=== PATIENT | female | born 1955 | race Caucasian/White ===

== ENCOUNTER 2019-02-15 18:32 | Inpatient (IN) | payer MEDICAID ==
[~2019-02-15] VITALS: Ht 165.1 cm; Wt 130.0 kg
[2019-02-15] MEDS ORDERED: IPRATROPIUM BROM 0.5 MG/2.5ML INH SOL NEB ONE (19:00)
[2019-02-15] MEDS ORDERED: ALBUTEROL SULF 2.5 MG/0.5ML(0.5%) NEB SOLN NEB ONE (19:00)
[2019-02-15 19:13] LABS: Basophils # (auto) 0.1 uL; Eosinophils # (auto) 0.2 uL; Eosinophils % (auto) 2.1 % (0.0-7.0); Hematocrit 45.9 % (41.0-53.0); Hemoglobin 14.8 g/dL (13.5-17.5); Lymphocytes # (auto) 1.6 uL; Lymphocytes % (auto) 19.6 % (10.0-50.0); Mean Corpuscular Hemoglobin 29.4 pg (28.0-32.0); Mean Corpuscular Hgb Conc. 32.2 g/dL (32.0-36.0); Mean Corpuscular Volume 91.3 fL (80.0-100.0); Monocytes # (auto) 0.7 uL; Monocytes % (auto) 8.9 % (0.0-12.0); Neutrophils # (auto) 5.6 uL; Neutrophils % (auto) 68.4 % (37.0-80.0); Nucleated Red Blood Cells % 0.2 %; Platelet Count (auto) 198 10^3/uL (140-450); Red Blood Cells 5.03 10^6/uL (4.5-5.90); Red Cell Distribution Width 15.5 % (11.8-14.3); White Blood Cell 8.1 10^3/uL (4.4-10.8)
[2019-02-15 19:27] LABS: Alanine Aminotransferase 26 U/L (16-61); Albumin 3.4 g/dL (3.4-5.0); Anion Gap 2 (5-15); Aspartate Aminotransferase 16 U/L (15-37); Blood Urea Nitrogen 18 mg/dL (7-18); Calcium 8.9 mg/dL (8.5-10.1); Carbon Dioxide 38 mmol/L (21-32); Chloride 104 mmol/L (98-107); GFR African American 135 mL/min; GFR Non-African American 112 mL/min; Glucose 110 mg/dL (74-106); Magnesium 2.4 mg/dL (1.6-2.6); Potassium 4.3 mmol/L (3.5-5.1); Sodium 144 mmol/L (136-145)
[2019-02-15] MEDS ORDERED: cefTRIAXone 1GM/50ML D5W 50 ML IV ONE (19:30)
[2019-02-15] MEDS ORDERED: methylPREDNISolone SOD SUCC 125 MG/2 ML VL IV ONE (19:30)
[2019-02-15 19:32] LABS: Alkaline Phosphatase 112 U/L (45-117); Bilirubin, Total 0.2 mg/dL (0.2-1.0); Total Protein 7.2 g/dL (6.4-8.2)
[2019-02-15 19:37] LABS: Urine Bacteria FEW /hpf (None Seen); Urine Blood TRACE /uL (Negative); Urine Hyaline Cast FEW /lpf (0 - 2); Urine Mucus FEW (None Seen); Urine Specific Gravity 1.014 (1.001-1.035); Urine WBC 1 /hpf (0 - 3)
[2019-02-15 19:47] LABS: INR < 0.93 (0.9-1.15); Partial Thromboplastin Time 24.8 sec (23.64-32.05)
[2019-02-15] MEDS ORDERED: NITROGLYCERIN 0.4 MG SL TAB SL PRN (21:45)
[2019-02-15] MEDS ORDERED: LORazepam 0.5 MG TAB PO PRN (21:45)
[2019-02-15] MEDS ORDERED: ZOLPIDEM TARTRATE 5 MG TAB PO PRN (21:45)
[2019-02-15] MEDS ORDERED: MORPHINE SULFATE 4 MG/ML SYR/VIAL IV PRN ×2 (21:45)
[2019-02-15] MEDS ORDERED: ONDANSETRON HCL 4 MG/2 ML VIAL IV PRN (21:45)
[2019-02-15] MEDS ORDERED: ALUM & MAG HYDROX-SIMETH LIQ(MAALOX) 30 ML PO PRN (21:45)
[2019-02-15] MEDS ORDERED: MORPHINE SULF INJ 2 MG/ML SYRINGE 1ML IV PRN (21:45)
[2019-02-15] MEDS: methylPREDNISolone SOD SUCC 40 MG/ML VL IV SCH (22:00)
--- NOTE | 2019-02-15 23:30 | NUR ---
received pt from er nurse poc reviewed
[2019-02-15] MEDS: AZITHROMYCIN 500MG/ 250ML 250 ML IV SCH (23:32)
--- NOTE | 2019-02-15 23:50 | NUR ---
Patient has a list of the medications she takes at home but no dosages and states she will have them brought in tomorrow or call her daughter for that information when her daughter is home.
[2019-02-16] VITALS (7 sets, daily range): BP systolic 128–147; BP diastolic 71–89
--- NOTE | 2019-02-16 00:10 | NUR ---
Respiratory note: AT BEDSIDE FOR PLACEMENT PT NOT READY TO BE PLACED ON BIPAP YET PADMINI ARREDONDO AND GIRISH AT BEDSIDE AND MADE AWARE TO HAVE ME PAGED WHEN PT IS READY.
--- NOTE | 2019-02-16 00:26 | NUR ---
Respiratory note: at bedside placed pt on bipap on size medium mask. no breakdown noted prior to placement. bs are diminished t/o, med neb tx given inline without adverse reaction noted. pt aware I can be paged at any time she has a concern with equipment or her breathing. RN Jessica aware of placement.
[2019-02-16] MEDS: ALBUTEROL SULF 2.5 MG/0.5ML(0.5%) NEB SOLN NEB SCH ×4 (00:36→22:37)
[2019-02-16] MEDS: IPRATROPIUM BROM 0.5 MG/2.5ML INH SOL NEB SCH ×4 (00:36→22:37)
--- NOTE | 2019-02-16 00:39 | NUR ---
pt on bipap tolerating well
--- NOTE | 2019-02-16 02:08 | NUR ---
Respiratory note: AT BEDSIDE FOR ROUTINE BIPAP CHECK, NO CHANGES MADE AT THIS TIME. PT COMFORTABLY SLEEPING.
--- NOTE | 2019-02-16 04:29 | NUR ---
Respiratory note: END OF SHIFT BIPAP CHECK, NO CHANGES DONE AT THIS TIME. WILL HAVE DAY SHIFT RT CONTINUE POC.
[2019-02-16 05:53] LABS: Basophils # (auto) 0 uL; Basophils % (auto) 0.4 % (0.0-2.0); Eosinophils # (auto) 0 uL; Eosinophils % (auto) 0.1 % (0.0-7.0); Hematocrit 45.2 % (36.0-46.0); Hemoglobin 14.4 g/dL (12.2-16.2); Lymphocytes # (auto) 0.8 uL; Lymphocytes % (auto) 12.2 % (10.0-50.0); Mean Corpuscular Hemoglobin 29.2 pg (28.0-32.0); Mean Corpuscular Hgb Conc. 31.8 g/dL (32.0-36.0); Mean Corpuscular Volume 91.7 fL (80.0-100.0); Monocytes # (auto) 0.1 uL; Monocytes % (auto) 1.6 % (0.0-12.0); Neutrophils # (auto) 5.8 uL; Neutrophils % (auto) 85.7 % (37.0-80.0); Nucleated Red Blood Cells % 0.1 %; Platelet Count (auto) 188 10^3/uL (140-450); Red Blood Cells 4.93 10^6/uL (4.0-5.20); Red Cell Distribution Width 15.9 % (11.8-14.3); White Blood Cell 6.8 10^3/uL (4.4-10.8)
[2019-02-16 06:13] LABS: INR < 0.93 (0.9-1.15); Partial Thromboplastin Time 25.9 sec (23.64-32.05)
[2019-02-16] MEDS: methylPREDNISolone SOD SUCC 40 MG/ML VL IV SCH ×3 (06:21→22:03)
--- NOTE | 2019-02-16 06:23 | NUR ---
resting with eyes closed call light within reach, no c/o discomfort
[2019-02-16 06:34] LABS: Potassium 4.4 mmol/L (3.5-5.1)
[2019-02-16 06:45] LABS: Albumin 3.2 g/dL (3.4-5.0); BUN/Creatinine Ratio 35.5; Bilirubin, Total 0.2 mg/dL (0.2-1.0); Calcium 8.9 mg/dL (8.5-10.1); Magnesium 2.3 mg/dL (1.6-2.6); Phosphorus 2.9 mg/dL (2.5-4.90)
--- NOTE | 2019-02-16 08:00 | NUR ---
Opening Shift Note Assumed care of patient, awake, alert and oriented X4. No S/S of distress/SOB or pain. Patient is currently on Bi-Pap with SPO2 @ 94%. Tele# 55, sinus rhythm @ 86 bpm. IV to right forearm, 20 gauge, patent and saline locked. Instructed on POC and to call for assist PRN, verbalized understanding. Bed locked, in lowest position, call light within reach, will continue to monitor for changes Q1hr and PRN.
--- NOTE | 2019-02-16 09:02 | NUR ---
Respiratory note: ABG DRAWN AT 0848 ON BIPAP TO REASSESS CO2 LEVELS. CRITICAL VALUE ON CO2. DR. GROSSMAN PAGED AT THIS TIME TO REPORT CRITICAL VALUE. AWAITING CALL BACK. PADMINI REINOSO AWARE OF CRITICAL VALUE AND OF CALL OUT TO DR. GROSSMAN.
--- NOTE | 2019-02-16 09:23 | NUR ---
Respiratory note: RECEIVED CALL BACK FROM DR. GROSSMAN, ABG TO BE REPEATED AT 1100 AFTER FIO2 DECREASE TO 35%.
--- NOTE | 2019-02-16 09:50 | NUR ---
Respiratory note: FIO2 DECREASED TO 32% AT THIS TIME. SPO2 MAINTAINED AT 90%.
[2019-02-16] MEDS ORDERED: DOCUSATE SOD 100 MG CAP PO SCH (10:00)
[2019-02-16] MEDS: ENOXAPARIN SOD 40 MG/0.4 ML SYRINGE SC SCH (11:01)
--- NOTE | 2019-02-16 11:18 | NUR ---
Respiratory note: REPEAT ABG DRAWN AND RESULTS REPORTED TO DR. GROSSMAN WELL TO PADMINI REINOSO. PH HAS NORMALIZED AND CO2 HAS DECREASED TO WITHIN HER NORMAL RANGE. PATIENT TAKEN OFF BIPAP AND PLACED ON 3LPM NASAL CANNULA AT THIS TIME. PADMINI REINOSO AT BEDSIDE AND AWARE OF OXYGEN INTERFACE CHANGE. SPO2 MAINTAINED AT 92% ON 3LPM.
[2019-02-16] MEDS ORDERED: MELO1TAB73 PO (11:26)
[2019-02-16] MEDS ORDERED: CAR3125T PO (11:26)
[2019-02-16] MEDS ORDERED: ZOLP-158 PO (11:26)
[2019-02-16] MEDS ORDERED: SIMV10TA84 PO (11:26)
[2019-02-16] MEDS ORDERED: LORA-154 PO (11:26)
[2019-02-16] MEDS ORDERED: DOCU-94 PO (11:26)
[2019-02-16] MEDS ORDERED: BACL20TA PO (11:26)
[2019-02-16] MEDS ORDERED: LOS25T PO (11:26)
[2019-02-16] MEDS ORDERED: HYDR-4072 PO (11:26)
[2019-02-16] MEDS ORDERED: ALBUAER3 IN (11:26)
[2019-02-16] MEDS ORDERED: AML5T PO (11:26)
[2019-02-16] MEDS ORDERED: FUROSEMIDE 20 MG/2 ML VIAL IV ONE (14:00)
[2019-02-16] MEDS ORDERED: POTASSIUM CHL 20 Meq TABLET PO ONE (14:00)
--- NOTE | 2019-02-16 14:05 | NUR ---
ROUNDS Dr Anita Martinez at bedside for rounds, new orders received and followed through. Patient updated on plan of care, verbalized understanding.
[2019-02-16] MEDS ORDERED: DEXTROSE (50%) 50ML SYRG IV PRN (14:15)
[2019-02-16] MEDS ORDERED: ALBUTEROL SULFATE 90 MCG IN SCH (14:15)
--- NOTE | 2019-02-16 15:40 | NUR ---
PULMONOLOGY Dr Quevedo at bedside for Pulmonology consult, new orders received and followed through. Patient updated on plan of care, verbalized understanding.
[2019-02-16] MEDS: InsuLIN REG 1unit/0.01ml Soln (100units/ml) SC SCH ×2 (17:00→22:00)
[2019-02-16] MEDS: ACCU-CHEK COMFORT CURVE STRIP VI SCH ×2 (17:07→22:19)
[2019-02-16] MEDS ORDERED: ZOCOR 10 MG PO SCH (18:00)
--- NOTE | 2019-02-16 19:00 | NUR ---
Respiratory note: BEDSIDE SPIROMETRY COMPLETED. RESULTS PLACED IN PT'S CHART.
--- NOTE | 2019-02-16 19:13 | NUR ---
Care endorsed to PADMINI Lopez, night nurse.
--- NOTE | 2019-02-16 19:30 | NUR ---
received pt from day rn poc reviewed
[2019-02-16] MEDS: ZOLPIDEM TARTRATE 5 MG TAB PO SCH (22:00)
[2019-02-16] MEDS: PRAVASTATIN SODIUM 20 MG TAB PO SCH (22:01)
[2019-02-16] MEDS: BACLOFEN 10 MG TAB PO SCH (22:01)
[2019-02-16] MEDS: DOCUSATE SOD 100 MG CAP PO SCH (22:01)
[2019-02-16] MEDS: CARVEDILOL 3.125 MG TAB PO SCH (22:02)
[2019-02-16] MEDS: HYDROcodone-ACET 10/325MG TAB PO PRN (22:02)
[2019-02-16] MEDS: BUDESONIDE (INHALATION) 0.5 MG/2 ML NEB NEB SCH (22:38)
--- NOTE | 2019-02-16 22:48 | NUR ---
c/o general pain medicated as ordered, resp even and unlabored, call light within reach
[2019-02-16] MEDS: AZITHROMYCIN 500MG/ 250ML 250 ML IV SCH (23:24)
[2019-02-16] MEDS ORDERED: AMIT10TA6 PO (23:34)
[2019-02-16] MEDS ORDERED: FURO40TA4 PO (23:34)
[2019-02-16] MEDS ORDERED: SIMV-8 PO (23:36)
[2019-02-16] MEDS ORDERED: LOSA-69 PO (23:37)
[2019-02-17 00:40] VITALS: BP 138/58
[2019-02-17] MEDS: IPRATROPIUM BROM 0.5 MG/2.5ML INH SOL NEB SCH ×4 (00:43→19:12)
[2019-02-17] MEDS: ALBUTEROL SULF 2.5 MG/0.5ML(0.5%) NEB SOLN NEB SCH ×4 (00:44→19:13)
--- NOTE | 2019-02-17 03:40 | NUR ---
received pt from er nurse poc reviewed
--- NOTE | 2019-02-17 03:41 | NUR ---
resting with eyes closed on bipap tolerating well, call light within reach, bed alarm intact positioned with hob up
[2019-02-17 05:06] VITALS: BP 120/68
[2019-02-17] MEDS: LORATADINE 10 MG TAB PO SCH (05:40)
[2019-02-17] MEDS: BUDESONIDE (INHALATION) 0.5 MG/2 ML NEB NEB SCH ×2 (05:41→19:13)
[2019-02-17] MEDS: methylPREDNISolone SOD SUCC 40 MG/ML VL IV SCH ×3 (05:41→22:06)
--- NOTE | 2019-02-17 05:47 | NUR ---
Respiratory note: PT RECEIVED MED NEB TX VIA BIPAP, TOLERATED WELL. PT NOW OFF BIPAP ON 3 L NC. RN AT BEDSIDE.
[2019-02-17 05:48] LABS: Basophils # (auto) 0 uL; Basophils % (auto) 0.2 % (0.0-2.0); Eosinophils # (auto) 0 uL; Hematocrit 41.9 % (36.0-46.0); Hemoglobin 13.6 g/dL (12.2-16.2); Lymphocytes # (auto) 0.9 uL; Lymphocytes % (auto) 9.1 % (10.0-50.0); Mean Corpuscular Hemoglobin 29.5 pg (28.0-32.0); Mean Corpuscular Hgb Conc. 32.5 g/dL (32.0-36.0); Mean Corpuscular Volume 90.5 fL (80.0-100.0); Monocytes # (auto) 0.4 uL; Monocytes % (auto) 4.1 % (0.0-12.0); Neutrophils # (auto) 8.5 uL; Neutrophils % (auto) 86.6 % (37.0-80.0); Nucleated Red Blood Cells % 0.1 %; Platelet Count (auto) 203 10^3/uL (140-450); Red Blood Cells 4.63 10^6/uL (4.0-5.20); White Blood Cell 9.8 10^3/uL (4.4-10.8)
[2019-02-17] MEDS: InsuLIN REG 1unit/0.01ml Soln (100units/ml) SC SCH ×4 (05:48→22:25)
[2019-02-17] MEDS: ACCU-CHEK COMFORT CURVE STRIP VI SCH ×4 (05:50→22:25)
[2019-02-17 05:57] LABS: Calcium 8.6 mg/dL (8.5-10.1); Potassium 4.8 mmol/L (3.5-5.1)
[2019-02-17 06:01] LABS: Bilirubin, Total 0.2 mg/dL (0.2-1.0); Total Protein 6.5 g/dL (6.4-8.2)
--- NOTE | 2019-02-17 07:04 | NUR ---
Report given to REINA WASHINGTON. POC reviewed.
--- NOTE | 2019-02-17 07:30 | NUR ---
Opening Shift Note Assuming care of patient at this time. Patient is awake and alert. Patient denies pain. Patient shows no signs or symptoms of distress or shortness of breath. Instructed patient on the plan of care for today and to call for assistance as needed. Call light within reach. Will continue to round hourly and as needed. Call light within reach.
[2019-02-17 08:23] VITALS: BP 125/84
--- NOTE | 2019-02-17 09:25 | NUR ---
Weekend paper cone machine tender-I did not receive a page regarding the social service consult for this patient.
[2019-02-17] MEDS: MELOXICAM 7.5 MG PO SCH ×2 (10:00→10:52)
[2019-02-17] MEDS: HYDROcodone-ACET 10/325MG TAB PO PRN ×2 (10:47→22:20)
[2019-02-17] MEDS: POTASSIUM CHL 20 Meq TABLET PO SCH (10:47)
[2019-02-17] MEDS: BACLOFEN 10 MG TAB PO SCH ×2 (10:47→22:07)
[2019-02-17] MEDS: CARVEDILOL 3.125 MG TAB PO SCH ×2 (10:48→22:07)
[2019-02-17] MEDS: amLODIPine BESYLATE 5 MG TAB PO SCH (10:49)
[2019-02-17] MEDS: LOSARTAN POTASSIUM 25 MG TAB PO SCH (10:50)
[2019-02-17] MEDS: DOCUSATE SOD 100 MG CAP PO SCH ×2 (10:50→22:06)
[2019-02-17] MEDS: ENOXAPARIN SOD 40 MG/0.4 ML SYRINGE SC SCH (10:51)
[2019-02-17] MEDS: FUROSEMIDE 20 MG/2 ML VIAL IV SCH (10:51)
--- NOTE | 2019-02-17 11:24 | NUR ---
I faxed Bi-pap order to [facility], requesting authorization for [facility].
--- NOTE | 2019-02-17 13:11 | NUR ---
Call to [employer] Call to social science research assistant at this time regarding patient's new consult. Left a message for Uyen. Awaiting callback.
--- NOTE | 2019-02-17 13:27 | NUR ---
Call from Dr. Martinez Call from Dr. Martinez. made aware of home medications. New orders given to resume patient's home medications.
--- NOTE | 2019-02-17 16:00 | NUR ---
Ambulation Activity Ambulated patient from [place] to [place] on 3L nasal cannula, upon checking oxygen saturation, O2: 82%. Patient states she does not feel short of breath and forgot to breathe through her nose. After a rest, oxygen saturation went up to 91%. Ambulated patient back to her room on room air, oxygen saturation was 75%. Immediately put patient back on 3L nasal cannula. After taking some deep breaths through her nose, oxygen saturation was 92%. Patient is now resting comfortably in bed. No distress noted. Wrote a note in chart regarding oxygen saturation per Dr. Martinez's request.
--- NOTE | 2019-02-17 17:11 | NUR ---
D/C Planning Per SS consult for BIPAP with IPAP 16H20, Epap 7 cmH2O, RR 12, Fio 35%, Nebulizer and home O2. Contacted [facility] Ph:) Fax:) Faxed medical records. Shop Clerk Shauna faxed to insurance for authorization. Per Blanca from [facility] order has been received and is being reviewed. Advised Blanca from [facility] to deliver to bedside upon approval from insurance. Informed PADMINI Moreira.
[2019-02-17 17:19] VITALS: BP 113/55
--- NOTE | 2019-02-17 19:18 | NUR ---
Closing Shift Note Patient resting in bed. Patient denies pain. No distress noted. Report given. Will endorse care to the night monitor RN.
--- NOTE | 2019-02-17 19:30 | NUR ---
Opening Shift Note Assumed care of patient, awake and alert. No S/S of distress/SOB or pain. Patient states that she feels comfortable and requested coffee. Instructed on POC and to call for assist PRN, will continue to monitor for changes Q1hr and PRN.
[2019-02-17 21:21] VITALS: BP 140/78
[2019-02-17] MEDS ORDERED: AMITRIPTYLINE HCL 10 MG TAB PO SCH (22:00)
--- NOTE | 2019-02-17 22:05 | NUR ---
IV removal Right hand IV was pulled out unintentionally by the patient. Catheter fully intact. Pressure dressing applied to site.
[2019-02-17] MEDS: PRAVASTATIN SODIUM 20 MG TAB PO SCH (22:06)
[2019-02-17] MEDS: SENNA 8.6 MG TAB PO SCH (22:08)
[2019-02-17] MEDS: ZOLPIDEM TARTRATE 5 MG TAB PO SCH (22:09)
--- NOTE | 2019-02-17 22:35 | NUR ---
IV insertion IV access obtained, via clean sterile technique by inserting 22 gauge catheter at the right wrist after 2 attempt(s). IV secured properly. No trauma to site. Patient tolerated well.
[2019-02-17] MEDS: AZITHROMYCIN 500MG/ 250ML 250 ML IV SCH (23:45)
[2019-02-18] MEDS: IPRATROPIUM BROM 0.5 MG/2.5ML INH SOL NEB SCH ×5 (00:54→23:35)
[2019-02-18] MEDS: ALBUTEROL SULF 2.5 MG/0.5ML(0.5%) NEB SOLN NEB SCH ×5 (00:54→23:35)
--- NOTE | 2019-02-18 02:10 | NUR ---
IV removal The patient began to complain about right hand pain and requested that the IV be removed. IV DC'd with clean sterile technique, catheter fully intact. Pressure dressing applied to site. Patient tolerated well. Patient refused attempt at inserting a new IV at this time.
[2019-02-18 05:00] VITALS: BP 141/76
[2019-02-18] MEDS: BUDESONIDE (INHALATION) 0.5 MG/2 ML NEB NEB SCH ×2 (05:48→18:35)
[2019-02-18 06:13] LABS: Albumin 3.2 g/dL (3.4-5.0); Calcium 8.5 mg/dL (8.5-10.1); Potassium 4.7 mmol/L (3.5-5.1)
[2019-02-18 06:19] LABS: Bilirubin, Total 0.3 mg/dL (0.2-1.0); Total Protein 6.9 g/dL (6.4-8.2)
[2019-02-18 06:31] LABS: Basophils # (auto) 0 uL; Basophils % (auto) 0.3 % (0.0-2.0); Eosinophils # (auto) 0 uL; Hematocrit 43.2 % (36.0-46.0); Hemoglobin 14.2 g/dL (12.2-16.2); Lymphocytes # (auto) 0.9 uL; Lymphocytes % (auto) 8.2 % (10.0-50.0); Mean Corpuscular Hemoglobin 29.5 pg (28.0-32.0); Mean Corpuscular Hgb Conc. 32.9 g/dL (32.0-36.0); Mean Corpuscular Volume 89.7 fL (80.0-100.0); Monocytes # (auto) 0.3 uL; Monocytes % (auto) 2.6 % (0.0-12.0); Neutrophils # (auto) 9.3 uL; Neutrophils % (auto) 88.9 % (37.0-80.0); Platelet Count (auto) 219 10^3/uL (140-450); Red Blood Cells 4.82 10^6/uL (4.0-5.20); Red Cell Distribution Width 15.6 % (11.8-14.3); White Blood Cell 10.4 10^3/uL (4.4-10.8)
[2019-02-18] MEDS: methylPREDNISolone SOD SUCC 40 MG/ML VL IV SCH (06:39)
[2019-02-18] MEDS: LORATADINE 10 MG TAB PO SCH (06:39)
[2019-02-18] MEDS: HYDROcodone-ACET 10/325MG TAB PO PRN (06:40)
[2019-02-18] MEDS: InsuLIN REG 1unit/0.01ml Soln (100units/ml) SC SCH ×4 (06:45→22:00)
[2019-02-18] MEDS: ACCU-CHEK COMFORT CURVE STRIP VI SCH ×4 (06:45→22:03)
--- NOTE | 2019-02-18 06:45 | NUR ---
IV insertion IV access obtained, via clean sterile technique by inserting 22 gauge catheter at RIGHT FA. IV secured properly. No trauma to site. Patient tolerated well.
--- NOTE | 2019-02-18 07:23 | NUR ---
CLOSING NOTE Patient is resting comfortably in bed. Care has been endorse to Day shift RN.
--- NOTE | 2019-02-18 08:30 | NUR ---
Spoke with Tin Container Straightener Spoke with Uyen in social studies department chair. She is still currently working on patient getting authorization for Bipap, nebulizer, and home O2. Will inform
[2019-02-18 09:00] VITALS: BP 140/74
[2019-02-18] MEDS: BACLOFEN 10 MG TAB PO SCH ×2 (09:54→21:49)
[2019-02-18] MEDS: POTASSIUM CHL 20 Meq TABLET PO SCH (09:54)
[2019-02-18] MEDS: amLODIPine BESYLATE 5 MG TAB PO SCH (09:55)
[2019-02-18] MEDS: CARVEDILOL 3.125 MG TAB PO SCH ×2 (09:56→21:51)
[2019-02-18] MEDS: LOSARTAN POTASSIUM 25 MG TAB PO SCH (09:57)
[2019-02-18] MEDS: DOCUSATE SOD 100 MG CAP PO SCH ×2 (09:57→21:50)
[2019-02-18] MEDS: FUROSEMIDE 20 MG/2 ML VIAL IV SCH (09:58)
[2019-02-18] MEDS: MELOXICAM 7.5 MG PO SCH (09:58)
[2019-02-18] MEDS: ENOXAPARIN SOD 40 MG/0.4 ML SYRINGE SC SCH (09:59)
--- NOTE | 2019-02-18 10:09 | NUR ---
Re: Dr. Sae Quevedo at bedside discussing plan of care with patient. If all equipment is delivered and necessary medications are prescribed, patient is clear for discharge from a respiratory standpoint. All questions and concerns addressed with patient and this RN. Dr. Quevedo explained expectations and follow-up diagnostics needed by patient. Patient verbalized understanding.
--- NOTE | 2019-02-18 10:20 | NUR ---
Dr. Martinez at bedside Dr. Martinez at bedside at this time discussing discharge planning with patient. If patient is approved for Bipap but waiting for delivery than keep patient until it is delivered. If insurance does not approve Bipap, patient will be discharged according to orders.
--- NOTE | 2019-02-18 10:48 | NUR ---
Called [facility] [phone]-was unable to speak with a live person. Faxed second request to [facility] asking for authorization for home oxygen, nebulizer and Bipap-also faxed again clinical information including H&P, ABG and order to [phone].
[2019-02-18] MEDS: AMITRIPTYLINE HCL 10 MG TAB PO SCH ×2 (12:40→21:50)
--- NOTE | 2019-02-18 12:43 | NUR ---
Late Medication Amitriptyline was given late and medication was unable to be removed from pyxis. Message, "one time dose order has already been pulled." Order is for BID administration. Called pharmacy three times and spoke with a pharmacist each time. Medication was finally able to be pulled after order was put in again.
[2019-02-18 13:00] VITALS: BP 143/76
[2019-02-18 13:51] VITALS: BP 140/74
--- NOTE | 2019-02-18 14:29 | NUR ---
I called [facility] [phone] and spoke with Garment Supervisor Chelsey regarding the request for auth for [employer] for home oxygen and the Bi-pap and nebulizer. Per Chelsey the nebulizer authorization will come from [facility]. She will forward the information to her coordinator Blanca [phone] who will work on it and give me a call back. Faxed nebulizer auth request to [facility].
--- NOTE | 2019-02-18 15:36 | NUR ---
I received a call from Rosalina at [facility] letting me know that the authorization for [facility] for nebulizer is [id number] sent it to [employer] as well.
[2019-02-18 17:00] VITALS: BP 140/72
--- NOTE | 2019-02-18 18:01 | NUR ---
D/C Planning Followed up call to [facility] Ph:( [phone]) spoke to Fuentes. Per Fuentes authorization was provided for a BIPAP and a FWW. Advised Fuentes from [facility] referral was sent to them for a BIPAP, nebulizer and home O2 and authorization was requested for the BIPAP, Nebulizer and Home O2 and not for a FWW. Per Fuentes from [facility] BIPAP will be deliver to bedside at 18:00 however, they are unable to deliver nebulizer and home O2 since authorization was provided for a BIPAP and FWW. Informed Fuentes from [facility] I will follow up tomorrow regarding nebulizer and home O2. Informed PADMINI Moreira Pt will only be receiving the BIPAP today 02/18/19.
--- NOTE | 2019-02-18 19:15 | NUR ---
Opening Shift Note Assumed care of patient, awake and alert. No S/S of distress/SOB. Instructed on POC and to call for assist PRN, will continue to monitor for changes Q1hr and PRN.
--- NOTE | 2019-02-18 19:37 | NUR ---
Closing Note Patient resting in bed. Aware of home oxygen and nebulizer not being delivered. Transport with oxygen could not be arranged due to the time per Uyen in director of social work. Patient is aware that discharge is on hold until necessary items are delivered. Report given. Will endorse care to the cage shift manager RN.
[2019-02-18] MEDS: SENNA 8.6 MG TAB PO SCH (21:49)
[2019-02-18] MEDS: predniSONE 20 MG TAB PO SCH (21:49)
[2019-02-18] MEDS: PRAVASTATIN SODIUM 20 MG TAB PO SCH (21:50)
[2019-02-18] MEDS: ZOLPIDEM TARTRATE 5 MG TAB PO SCH (21:50)
[2019-02-18 22:00] VITALS: BP 132/69
[2019-02-18] MEDS: AZITHROMYCIN 500MG/ 250ML 250 ML IV SCH (22:59)
[2019-02-19 03:24] VITALS: BP 125/65
[2019-02-19 05:00] VITALS: BP 138/70
[2019-02-19] MEDS: ACCU-CHEK COMFORT CURVE STRIP VI SCH ×2 (06:41→11:30)
[2019-02-19] MEDS: InsuLIN REG 1unit/0.01ml Soln (100units/ml) SC SCH ×2 (06:41→11:30)
[2019-02-19] MEDS: BUDESONIDE (INHALATION) 0.5 MG/2 ML NEB NEB SCH (06:42)
[2019-02-19] MEDS: ALBUTEROL SULF 2.5 MG/0.5ML(0.5%) NEB SOLN NEB SCH ×2 (06:42→11:50)
[2019-02-19] MEDS: LORATADINE 10 MG TAB PO SCH (06:42)
[2019-02-19] MEDS: IPRATROPIUM BROM 0.5 MG/2.5ML INH SOL NEB SCH ×2 (06:42→11:50)
--- NOTE | 2019-02-19 07:39 | NUR ---
CLOSING NOTE Patient is resting comfortably in bed. Care has been endorse to Day shift RN.
--- NOTE | 2019-02-19 07:40 | NUR ---
Opening Shift Note Assumed care of patient, awake and alert x4, sitting up at the end of the bed. No S/S of distress or SOB, no pain noted or reported at this time. Respirations are even and unlabored on 3L O2 via NC. Updated on POC and instructed to call for assistance as needed, patient verbalized understanding. Bed locked in lowest position, side rails up x2, call light within reach. Will continue to monitor for changes Q1hr and PRN.
[2019-02-19 08:23] VITALS: BP 127/75
--- NOTE | 2019-02-19 08:46 | NUR ---
I called [facility] discharge nurse Patrica [phone] and left message regarding needing the authorization for the nebulizer sent to [facility]-awaiting return call.
[2019-02-19] MEDS: MELOXICAM 7.5 MG PO SCH (10:00)
[2019-02-19] MEDS: POTASSIUM CHL 20 Meq TABLET PO SCH (10:07)
[2019-02-19] MEDS: FUROSEMIDE 20 MG/2 ML VIAL IV SCH ×2 (10:08→10:15)
[2019-02-19] MEDS: CARVEDILOL 3.125 MG TAB PO SCH (10:08)
[2019-02-19] MEDS: predniSONE 20 MG TAB PO SCH (10:08)
[2019-02-19] MEDS: DOCUSATE SOD 100 MG CAP PO SCH (10:08)
[2019-02-19] MEDS: amLODIPine BESYLATE 5 MG TAB PO SCH (10:09)
[2019-02-19] MEDS: BACLOFEN 10 MG TAB PO SCH (10:09)
[2019-02-19] MEDS: AMITRIPTYLINE HCL 10 MG TAB PO SCH (10:09)
[2019-02-19] MEDS: LOSARTAN POTASSIUM 25 MG TAB PO SCH (10:09)
[2019-02-19] MEDS: ENOXAPARIN SOD 40 MG/0.4 ML SYRINGE SC SCH (10:10)
--- NOTE | 2019-02-19 10:16 | NUR ---
Non-admin of IV Lasix When administering Lasix IV, the IV line was very painful and occluded. Patient refuses to have new IV line inserted as she is being discharged today.
--- NOTE | 2019-02-19 10:18 | NUR ---
IV removal and IV access IV DC'd with clean sterile technique, catheter fully intact. Pressure dressing applied to site. Patient tolerated well. Patient refuses to have new IV insertion, educated patient on the importance of IV line during hospital stay, continues to refuse.
[2019-02-19] MEDS: HYDROcodone-ACET 10/325MG TAB PO PRN (10:20)
--- NOTE | 2019-02-19 10:44 | NUR ---
I called [facility] Pneumatic Riveter Rosemarie (no return call from Patrica) regarding this patient's need for a nebulizer from . Rosemarie will follow up with Patrica and have her give me a call.
--- NOTE | 2019-02-19 11:29 | NUR ---
I received a call from Corinna at [facility] providing me with authorization number [id number] for nebulizer from -she sent them the authorization as well.
--- NOTE | 2019-02-19 11:50 | NUR ---
Respiratory note: PT REFUSED SCHEDULED MEB NEB TX AT THIS TIME DUE TO CURRENTLY BEING DISCHARGED. RN AT [facility] WITH DISCHARGE PAPERWORK.
--- NOTE | 2019-02-19 12:05 | NUR ---
Discharge instructions given as ordered. Encourage to follow up with PMD as instructed. All questions and concerns addressed. Patient verbalized understanding. Medication reconciliation form completed and copy given to patient. Telemetry unit returned to ICU. Patient taken to vehicle via wheelchair on 3L O2 via NC, with all personal belongings, accompanied by staff and family member. Patient connected to personal portable oxygen tank. No distress noted at time of departure.
--- NOTE | 2019-02-19 15:00 | NUR ---
D/C Planning Contacted Ph:) Fax:) faxed medical records for Nebulizer. Per Nilam from order has been received and they will contact Pt to deliver DME at home.
== END 2019-02-19 12:05 | disposition home or self-care (01) | DRG 140 ==
LOC: EDBD 18:32 → ER 18:36 → EDSEX 18:36 → TELE 18:37 → TELE-WESTW 23:43
PROVIDERS: ADMIT Hospitalist; ATTEND Internal Medicine
PROC: 5A09457 Assistance with Respiratory Ventilation, 24-96 Consecutive Hours, Continuous Positive Airway Pressure (ICD-10-PCS; principal; 2019-02-16)
DX: J44.1 Chronic obstructive pulmonary disease with (acute) exacerbation (principal); J96.21 Acute and chronic respiratory failure with hypoxia; J18.9 Pneumonia, unspecified organism; I11.0 Hypertensive heart disease with heart failure; E44.0 Moderate protein-calorie malnutrition; I50.9 Heart failure, unspecified; E87.2 Acidosis; E66.2 Morbid (severe) obesity with alveolar hypoventilation; I70.0 Atherosclerosis of aorta; J44.0 Chronic obstructive pulmonary disease with (acute) lower respiratory infection; Z99.81 Dependence on supplemental oxygen; J96.22 Acute and chronic respiratory failure with hypercapnia; Z68.42 Body mass index [BMI] 45.0-49.9, adult; Z82.3 Family history of stroke; Z82.49 Family history of ischemic heart disease and other diseases of the circulatory system; Z83.3 Family history of diabetes mellitus; Z87.891 Personal history of nicotine dependence; Z88.2 Allergy status to sulfonamides; Z79.899 Other long term (current) drug therapy
CPT/HCPCS: 36415; 36600; 71045; 80053; 80061; 81001; 82805; 82962; 83036; 83735; 83880; 84100; 84484; 85025; 85379; 85610; 85730; 94060; 94640; 94660; 94762; 96365; 96375; G0378; J0696; J1815